=== PATIENT | female | born 1955 | race Caucasian/White ===

== ENCOUNTER 2022-03-06 13:55 | Outpatient (CLI) | payer MEDICARE, BC, SELFPAY ==
--- NOTE | 2022-03-06 14:00 | CRLHL7_ITS ---
For Patients: As a result of the 21st Century Cures Act, medical imaging exams and procedure reports are released immediately into your electronic medical record. You may view this report before your referring provider. If you have questions, please contact your health care provider. EXAM: PET-CT SKULL BASE TO THIGH CLINICAL INFORMATION: 66-yo female with history of metastatic breast cancer. Prior right breast lumpectomy in 2015 followed by adjuvant chemotherapy. Right breast radiation in 2017. Currently on Letrozole. Patient is referred for further characterization. TECHNIQUE: Radiopharmaceutical: 12.20 mCi of 18F-FDG Intravenous injection site: Right forearm Uptake time: 58 minutes Blood glucose level at the time of injection: 79 mg/dL Field of view: Skull base to mid-thighs Intravenous contrast: Not administered Oral contrast: Not administered CT protocol: The low-dose, free-breathing, noncontrast CT performed as part of this study is designed for the purposes of attenuation correction and lesion localization, and it is neither sufficient, nor it should be substituted for diagnostic purposes. COMPARISON: PET-CT 03/25/2017. Chest CT 02/12/2017 FINDINGS: Physiologic background liver standardized uptake value (SUV mean and SUV max) reported for comparison between PET studies: 2.9 and 3.8. Visualized head and neck: Physiologic uptake in the visualized portions of the brain. Symmetric prominence of the palatine tonsils. Head and neck lymph nodes: Uptake within nonenlarged bilateral upper cervical chain lymph nodes is nonspecific, possibly reactive/inflammatory. For example: -right level 1B lymph node, 0.7 cm short axis, SUV max 3.5. Previously, 3.3. -right level 2 lymph node, 0.6 cm short axis, SUV max 3.7. Previously the 3.3. Lungs: No new tracer avid pulmonary nodules or abnormal uptake. Post radiation changes with areas of subpleural scarring in the anterior aspect of the right middle lobe and right upper lobe. No consolidation. Dependent atelectasis. Thoracic lymph nodes: No hypermetabolic mediastinal, hilar or left axillary lymph nodes. Other chest findings: Post radiation and post procedural changes of the right breast with prior lumpectomy and right axillary node dissection. Right breast lumpectomy site SUV max 2.2. Previously, 2.1. Similar mildly irregular soft tissue density inferior right axilla is nonspecific, possibly postsurgical, SUV max 2.5 (fused PET-CT image 83), previously SUV max 1.9. Similar overall configuration when compared to CT chest 02/12/2017 (series 6, image 66). Hepatobiliary: No abnormal uptake. Spleen: No abnormal uptake. Pancreas: No abnormal uptake. Adrenals: No abnormal uptake. Kidneys and bladder: No abnormal uptake. Physiologically excreted tracer activity within the renal collecting system and urinary bladder. Bladder is not well-distended. Bowel and peritoneum: No suspicious bowel uptake or abnormality. Colonic diverticulosis without inflammatory change. Pelvic organs: No abnormal uptake. Abdominopelvic lymph nodes: No hypermetabolic abdominopelvic lymph nodes. Mild uptake within bilateral nonenlarged inguinal lymph nodes is nonspecific, likely reactive/inflammatory. For example: -right inguinal lymph node, 0.7 cm short axis, SUV max 3.0. Musculoskeletal, soft tissues, skin: No suspicious osseous lesions or abnormal uptake. Degenerative type uptake within the shoulders, left AC joint and spine. Remote deformity involving the right anterior 5th and 6th ribs. Other: None. IMPRESSION: 1. Right breast post radiation and post procedural changes with prior right lumpectomy and right axillary lymph node dissection. No suspicious right soft tissue breast uptake. Avid mildly asymmetric soft tissue density in the inferior right axilla is similar in configuration overall when compared to CT chest 02/12/2017 without significant change, possibly postsurgical. Correlation with physical exam and clinical history. 2. No distant sites of tracer avid disease in the neck, solid organs of the abdomen/pelvis or osseous structures. 3. Other nonacute findings as detailed in the body of the report. Dictated by Yakov Mendoza MD @ 03/12/2022 12:48:41 AM (Electronically Signed)
== END 2022-03-06 13:56 | disposition home or self-care (01) ==
LOC: RAD 13:56
PROVIDERS: PCP Family Medicine; Visit Provider Internal Medicine Hematology & Oncology
DX: C50.311 Malignant neoplasm of lower-inner quadrant of right female breast (principal); S22.31XA Fracture of one rib, right side, initial encounter for closed fracture
CPT/HCPCS: 78815; A9552

== ENCOUNTER 2022-03-12 14:35 | Outpatient (RCR) | payer MEDICARE, BC, SELFPAY | END 2022-09-08 23:59 | disposition home or self-care (01) | LOC: CCIC 14:35 | PROVIDERS: PCP Family Medicine; Visit Provider Internal Medicine Hematology & Oncology | DX: C50.919 Malignant neoplasm of unspecified site of unspecified female breast (principal); Z17.0 Estrogen receptor positive status [ER+]; Z79.811 Long term (current) use of aromatase inhibitors; S22.31XA Fracture of one rib, right side, initial encounter for closed fracture | CPT/HCPCS: 99212; 99214 ==

== ENCOUNTER 2023-05-08 07:25 | Outpatient (CLI) | payer MEDICARE, BC, SELFPAY ==
--- NOTE | 2023-05-08 07:45 | CRLHL7_ITS ---
For Patients: As a result of the Century Cures Act, medical imaging exams and procedure reports are released immediately into your electronic medical record. You may view this report before your referring provider. If you have questions, please contact your health care provider. RIGHT DIGITAL DIAGNOSTIC MAMMOGRAM WITH TOMOSYNTHESIS AND COMPUTER-AIDED DETECTION INDICATION: 68-year-old female. History of RIGHT-sided breast cancer. Lumpectomy. Radiation therapy. New skin lesions medial RIGHT breast. No palpable abnormality. TECHNIQUE: CC and MLO views were obtained. This digital study was evaluated cysts of computer-aided detection. Digital breast tomosynthesis utilized in interpretation. COMPARISON: October 31, 2022. April 18, 2021. FINDINGS: Breast composition: There are scattered areas of fibroglandular density. Postsurgical/post treatment changes of the RIGHT breast with post lumpectomy and post radiation type change. There is no evidence for overt skin thickening. No mass or suspicious microcalcification. Brief visual inspection of the patient`s breasts demonstrates small rounded or oval-shaped red spots on the patient`s superior all medial and mid medial RIGHT breast. Dermatologic consultation will be warranted. Ultrasound is not recommended at this time. These findings were discussed in detail with the patient. IMPRESSION: Stable RIGHT breast mammogram. Postsurgical/post radiation type changes. Further workup or follow-up for the skin lesions should be based on clinical grounds. A lay language report of this examination will be provided to the patient. ACR 2 benign findings. Dictated by: Xu Botello MD @05/08/2023 8:49:30 AM JR/Dictated by: Xu Botello MD @ 05/08/2023 8:49:00 AM (Electronically Signed)
== END 2023-05-08 07:26 | disposition home or self-care (01) ==
LOC: MAMMO 07:26
PROVIDERS: PCP Family Medicine; Visit Provider Physician Assistant
DX: N64.4 Mastodynia (principal); Z85.3 Personal history of malignant neoplasm of breast
CPT/HCPCS: 77065; G0279

== ENCOUNTER 2023-05-28 15:13 | Outpatient (CLI) | payer MEDICARE, BC, SELFPAY ==
--- NOTE | 2023-05-28 15:30 | CRLHL7_ITS ---
For Patients: As a result of the Century Cures Act, medical imaging exams and procedure reports are released immediately into your electronic medical record. You may view this report before your referring provider. If you have questions, please contact your health care provider. DXA BONE MINERAL DENSITY STUDY Reason for exam: Long-term (current) use of aromatase inhibitors. Current height (in): 62.0. Weight (lb): 210.0. Menopause age: 50. Ethnicity: White. 1. Have you had a previous hip or vertebral fracture? No. 2. Have you had any fractures during your adult life which did not result from significant trauma (e.g., auto accident)? No. 3. Did either of your parents have a hip fracture? Yes. 4. Do you smoke? No. 5. Have you ever taken Glucocorticoids? No. 6. Do you have rheumatoid arthritis? No. 7. Do you have secondary osteoporosis? No. 8. Do you drink 3 or more alcoholic drinks per day? No. 9. Are you being treated for osteoporosis? No. 10. Have you ever taken any of the following medications: Actonel, Evista, Fosamax, Miacalcin, Reclast, Boniva, Forteo, HRT (i.e. estrogen/hormone therapy), Protelos, Prolia, Vitamin D, Calcium, other ??? please specify. ANSWER: Yes, vitamin D. 11. Do you have any of the following medical conditions: Anorexia or bulimia, asthma or emphysema, end stage renal disease, hyperparathyroidism, any seizure disorders, cancer, inflammatory bowel diseases, hysterectomy, other ??? please specify. ANSWER: Yes, cancer. 12. What was your maximum height (inches)? 65. 13. Do you perform weight bearing exercise regularly? No. 14. Do you regularly consume dairy products? Yes. 15. Do you drink caffeinated beverages? No. 16. At what age did your period start? 11. 17. Are you premenopausal? No. 18. How many full term pregnancies have you had? 3. 19. Have you ever missed your period for more than 6 months in a row (not including or menopause)? No. TECHNIQUE: Bone mineral density study was performed using the [employer]. FINDINGS: The results of the study expressed as bone mineral density (BMD) are as follows: Lumbar spine L1 to L4: BMD: 0.826 g/cm2. T-score: -2.0. Z-score: 0.0. Neck Left: BMD: 0.728 g/cm2. T-score: -1.1. Z-score: 0.6. Right: BMD: 0.640 g/cm2. T-score: -1.9. Z-score: -0.2. Total Left: BMD: 0.838 g/cm2. T-score: -0.9. Z-score: 0.5. Right: BMD: 0.844 g/cm2. T-score: -0.8. Z-score: 0.6. IMPRESSION: Osteopenia. *Comparison exams done prior to 12/2019 were performed on different unit, [employer]. COMPARISON: Compared with scan of 12/20/2020, the bone mineral density has decreased by 2.3 percent at the spine and decreased by 0.2 percent at the hip. FRAX 10-year Fracture Risk Major Osteoporotic Fracture: 16 percent Hip Fracture: 2.3 percent Reported Risk Factors: [place] () Neck BMD=0.640, BMI=38.4. Parental fracture. Everton Prado M.D. Diagnostic Radiologist [email or web address] / be/Dictated by: Everton Prado MD @ 05/29/2023 12:26:00 PM (Electronically Signed)
== END 2023-05-28 15:14 | disposition home or self-care (01) ==
LOC: RAD 15:14
PROVIDERS: PCP Family Medicine; Visit Provider Physician Assistant
DX: Z79.811 Long term (current) use of aromatase inhibitors (principal); M85.89 Other specified disorders of bone density and structure, multiple sites
CPT/HCPCS: 77080

== ENCOUNTER 2023-08-03 14:50 | Outpatient (RCR) | payer MEDICARE, BC, SELFPAY ==
--- NOTE | 2023-05-12 12:15 | ONC.NURNOTE ---
Results of mammogram reviewed by Cari Little PA-C. New referral placed for general surgery consult for punch biopsy to eval new right breast lesions and referral placed for dermatology. Pt notified of new referrals and results of mammogram. Pt instucted to call [phone] to schedule appt with general surgeon (blog writer discussed with Surgery nurse Nancy MCMILLAN), pt prefers [facility] vs [facility]. Pt will call [facility] to inform us of date of surgery appt/punch biopsy in order to schedule follow up appt with Cari Little PA-C. [facility] will reach out to pt to schedule. Pt verbalized understanding of plan of care.
--- NOTE | 2023-06-04 14:29 | ONC.NURNOTE ---
Dexascan reviewed by Cari Little PA-C. Per Cari Little PA-C, DEXA with osteopenia, minimal change from prior. Pt called with results and instructed to continue calcium and vitamin D and exercise as tolerated per Cari Little's recommendations. Pt verbalized understanding.
--- NOTE | 2023-06-08 16:27 | ONC.NURNOTE ---
Punch biopsy results reviewed by Cari Little PA-C. Appt cancelled for 06/15/23 due to biopsy being negative for malignancy. Pt scheduled for 3 mo follow up in July 2023. Pt verbalized understanding of plan care.
--- NOTE | 2023-08-04 11:22 | ONC.NURNOTE ---
Pt did not show up for appt on 08/03/23, when notified pt stated she wasn't aware of appt with Cari Little PA-C. Pt questioned if she needed to be seen at this time since she has no concerns or changes since last being seen. Brush Polisher discussed with Cari Little PA-C and she agreed pt can follow up in 3 months. Appt scheduled.
== END 2023-10-31 23:59 | disposition home or self-care (01) ==
LOC: CCIC 14:50
PROVIDERS: PCP Family Medicine; Visit Provider Physician Assistant
DX: C50.911 Malignant neoplasm of unspecified site of right female breast (principal)
CPT/HCPCS: 99212; 99214; 99215

== ENCOUNTER 2023-11-05 15:09 | Outpatient (RCR) | payer MEDICARE, BC, SELFPAY | END 2024-05-03 23:59 | disposition home or self-care (01) | LOC: CCIC 15:09 | PROVIDERS: PCP Family Medicine; Visit Provider Physician Assistant | DX: C50.911 Malignant neoplasm of unspecified site of right female breast (principal); Z17.0 Estrogen receptor positive status [ER+]; M85.80 Other specified disorders of bone density and structure, unspecified site; I78.1 Nevus, non-neoplastic | CPT/HCPCS: 99214; G0463 ==

== ENCOUNTER 2024-11-21 14:16 | Outpatient (RCR) | payer MEDICARE, BC, SELFPAY | END 2025-05-20 23:59 | disposition home or self-care (01) | LOC: CCIC 14:16 | PROVIDERS: PCP Family Medicine; Visit Provider Internal Medicine Hematology & Oncology | DX: C50.911 Malignant neoplasm of unspecified site of right female breast (principal); Z17.0 Estrogen receptor positive status [ER+]; M85.80 Other specified disorders of bone density and structure, unspecified site; Z87.891 Personal history of nicotine dependence | CPT/HCPCS: 99214; G0463 ==

== ENCOUNTER 2025-05-31 13:14 | Outpatient (CLI) | payer MEDICARE, BC, SELFPAY ==
--- NOTE | 2025-05-31 13:30 | CRLHL7_ITS ---
For Patients: As a result of the Cures Act, medical imaging exams and procedure reports are released immediately into your electronic medical record. You may view this report before your referring provider. If you have questions, please contact your health care provider. XR DXA Bone Mineral Density (BMD) Reason for exam: Unspecified menopausal and perimenopausal disorder. Current height (inches): 62.0 Weight (lbs.): 215.0 Menopause age: 50 Ethnicity: White 1. Have you had a previous hip or vertebral fracture? No. 2. Have you had any fractures during your adult life which did not result from significant trauma (e.g., auto accident)? No. 3. Did either of your parents have a hip fracture? Yes. 4. Do you smoke? No. 5. Have you ever taken Glucocorticoids? Yes. 6. Do you have rheumatoid arthritis? No. 7. Do you have secondary osteoporosis? No. 8. Do you drink 3 or more alcoholic drinks per day? No. 9. Are you being treated for osteoporosis? No. 10. Have you ever taken any of the following medications: Actonel, Evista, Fosamax, Miacalcin, Reclast, Boniva, Forteo, HRT (i.e., estrogen/hormone therapy), Protelos, Prolia, Vitamin D, Calcium, other ??? please specify. ANSWER: Yes; vitamin D. 11. Do you have any of the following medical conditions: Anorexia or bulimia, asthma or emphysema, end stage renal disease, hyperparathyroidism, any seizure disorders, cancer, inflammatory bowel diseases, hysterectomy, other ??? please specify. ANSWER: Yes; history of breast cancer. 12. What was your maximum height (inches)? 65. 13. Do you perform weightbearing exercise regularly? Yes. 14. Do you regularly consume dairy products? No. 15. Do you drink caffeinated beverages? Yes. 16. At what age did your period start? 11. 17. Are you premenopausal? No. 18. How many full-term pregnancies have you had? 3. 19. Have you ever missed your period for more than 6 months in a row (not including or menopause)? No. TECHNIQUE: Bone mineral density study was performed using the [employer]. FINDINGS: The results of the study expressed as bone mineral density (BMD) are as follows: Lumbar Spine L1 to L4: BMD: 0.871 g/cm2. T-score: -1.6. Z-score: 0.5. Neck Left: BMD: 0.747 g/cm2. T-score: -0.9. Z-score: 0.9. Right: BMD: 0.665 g/cm2. T-score: -1.7. Z-score: 0.1. Total Left: BMD: 0.844 g/cm2. T-score: -0.8. Z-score: 0.7. Right: BMD: 0.881 g/cm2. T-score: -0.5. Z-score: 1.0. IMPRESSION: Osteopenia. COMPARISON: Compared with scan of 05/28/2023, the bone mineral density has increased by 5.4% at the spine and increased by 2.6% at the hip. Compared with scan of 12/20/2020, the bone mineral density has decreased by 2.3% at the spine and decreased by 0.2% at the hip. *Comparison exams done prior to 12/2019 were performed on different unit, [employer]. FRAX 10-year Fracture Risk Major Osteoporotic Fracture: 22% Hip Fracture: 5.1% Reported Risk Factors: [place] () Neck BMD = 0.665, BMI = 39.3, parental fracture, glucocorticoids. EVERTON GREENWOOD M.D. Diagnostic Radiologist [email or web address] Transcribed: 1:[address]/Dictated by: Everton Greenwood MD @ 06/01/2025 8:01:00 AM (Electronically Signed)
== END 2025-05-31 13:15 | disposition home or self-care (01) ==
LOC: RAD 13:15
PROVIDERS: PCP Family Medicine; Visit Provider Internal Medicine Hematology & Oncology
DX: N95.9 Unspecified menopausal and perimenopausal disorder (principal)
CPT/HCPCS: 77080